=== PATIENT | female | born 1970 | race Caucasian/White ===

== ENCOUNTER → 2019-05-25 09:57 | Outpatient (BNVA) | payer BC, MEDICAID, SELFPAY | PROVIDERS: Family Provider Family Medicine; PCP Family Medicine; Visit Provider Specialist | DX: G40.909 Epilepsy, unspecified, not intractable, without status epilepticus (principal); F17.210 Nicotine dependence, cigarettes, uncomplicated | CPT/HCPCS: 99212 ==

== ENCOUNTER 2022-04-02 11:12 | Emergency (ER) | payer MEDICARE, MEDICAID, SELFPAY ==
[2022-04-02 11:24] VITALS: BP 134/86; PULSE 86; RESP 16; TEMP 36.9; O2SAT 95; BMI 37.8
--- NOTE | 2022-04-02 12:18 | ED_ITS ---
HPI - General Adult General: Chief complaint: General Medical Stated complaint: Congestion, head pain Time Seen by Provider: 04/02/22 11:24 Source: patient Mode of arrival: ambulatory History of Present Illness: 51-year-old female who presents emergency room complaining of sinus pain and congestion for the last week. She complaining of right ear pain and sinus congestion and fullness. Onset (ago): week(s) (1) Location: head Severity: mild Quality: aching Pain Consistency: constant Relieving factors: none Exacerbating factors: none Associated symptoms: Reports headache(s); Deny chest pain, confusion, cough, diaphoresis, decreased appetite, dyspnea, fevers/chills, malaise, nausea, rash, palpitations, seizures, short of breath, syncope, vomiting or weakness Review of Systems Const: Denies: fever(s), chills, fatigue, malaise or diaphoresis ENMT: Reports: ear or mastoid pain, nasal discharge and nasal congestion; Denies: throat pain or ear discharge Card: Denies: chest pain, palpitations or syncope Resp: Reports: non-productive cough; Denies: dyspnea GI: Denies: abdominal pain, nausea or vomiting : Denies: flank pain, difficulty voiding, dysuria, urinary frequency or urinary urgency Musc: Denies: neck pain or back pain Skin/Breast: Denies: rash or pruritus Neuro: Reports: headache(s); Denies: confusion PFSH ED PFSH: Medical History History of seizure Hx of traumatic brain injury Family History Other CAD (coronary artery disease) Dementia Denies family history of Hypertension Stroke Social History Smoking and tobacco status: current every day smoker cigarettes Packs smoked per day: 0.5 Alcohol intake: current Alcohol intake frequency: holidays/special occasions only History of recent travel: No Physical Exam Const: COMMON NORMALS: no acute distress GENERAL APPEARANCE: cooperative and comfortable ORIENTATION/CONSCIOUSNESS: Yes awake HENMT: COMMON NORMALS: normocephalic, atraumatic, hearing grossly normal bilaterally, external ears normal, EAC's normal, moist oral mucous membranes and oropharynx normal HEAD & SCALP: normocephalic and atraumatic NOSE: Nasal discharge present clear and mucoid EXTERNAL EAR: Yes external ears normal EXTERNAL AUDITORY CANAL: EAC's normal TYMPANIC MEMBRANE: TM abnormal TM lat erality: left Details: bulging, erythematous and fluid behind TM Eye: COMMON NORMALS: Equal, round and reactive pupils present, EOMs intact bilaterally, conjunctivae normal and no scleral icterus CONJUNCTIVA: Yes conjunctivae normal PUPIL: Yes Equal, round and reactive pupils present Neck/C-Spine: COMMON NORMALS: full ROM, no lymphadenopathy, supple and no JVD Lymph: LYMPHATIC: no lymphadenopathy noted and no lymphedema noted Resp: COMMON NORMALS: normal respiratory effort, No retractions, No use of accessory muscles and clear to auscultation bilaterally AUSCULTATION: clear to auscultation bilaterally Cardio: COMMON NORMALS: no JVD, regular rate, regular rhythm and No murmurs present (Cardio) RATE: regular rate RHYTHM: regular rhythm GI: COMMON NORMALS: Soft to palpation and No hepatosplenomegaly present AUSCULTATION: Yes normoactive bowel sounds PALPATION: Yes Soft to palpation, No Tenderness to palpation present (GI), No Guarding due to palpation present (GI) and Yes No hepatosplenomegaly present Extremity: COMMON NORMALS: normal to inspection, capillary refill normal, no clubbing, cyanosis or edema, no calf tenderness and no pedal edema Skin: COMMON NORMALS: no rashes or lesions noted GENERAL SKIN EXAM: no rashes or lesions noted Course Vital Signs: Vital signs: Vital Signs Temperature 98.5 F 04/02/22 11:24 Pulse Rate 86 04/02/22 12:46 Respiratory Rate 16 04/02/22 11:24 Blood Pressure 134/86 04/02/22 11:24 Pulse Oximetry 94 04/02/22 12:46 Oxygen Delivery Me thod 04/02/22 11:24 [facility] - General Adult Medical Decision Making Treated for left otitis media and sinusitis with Augmentin [id number] cough cold remedies Tylenol or Profen as needed. Medical Records I reviewed the patient's medical records. Lab Data I reviewed the patient's lab results. Discharge Plan Discharge Patient Disposition: Home Clinical Impression: Acute left otitis media, Sinusitis, acute Condition: Stable Prescriptions: New Augmentin 500-125 mg tablet 1 tab PO TID Qty: 30 0RF No Action cranberry 400 mg capsule 400 mg PO DAILY nitrofurantoin monohyd/m-cryst [Macrobid] 100 mg capsule 100 mg PO BID Discharge Orders: Discharge ED (Routine); Ordered 04/02/22 Ordered By: Kaden Martinez Referrals: Wolfgang Bailey MD [Primary Care Provider] - Discharge Diet: Usual diet Discharge Activity: Increase activity as tolerated Patient Instructions: Opioid Safety, Pain Management Activity Restrictions/Additional Instructions: You were seen today for an upper respiratory infection based on your exam you have a left otitis media and sinusitis. Take antibiotics 1 pill 3 times a day for 10 days. You can use [id number] cough cold decongestant remedies as needed as well as Tylenol or Profen for relief of other symptoms. Coding Level of Care Code ED Mortgage Loan Originator for Lupe Acosta
[2022-04-02 12:46] VITALS: PULSE 86; O2SAT 94
== END 2022-04-02 12:46 | disposition home or self-care (01) ==
PROVIDERS: Emergency Provider Family Medicine; PCP Family Medicine Adult Medicine
DX: H66.92 Otitis media, unspecified, left ear (principal); J01.90 Acute sinusitis, unspecified
CPT/HCPCS: 99283

== ENCOUNTER 2022-09-12 22:34 | Emergency (ER) | payer MEDICARE, MEDICAID, SELFPAY ==
[2022-09-12 22:40] VITALS: BP 106/80; PULSE 83; RESP 14; TEMP 36.7; O2SAT 97
--- NOTE | 2022-09-12 22:43 | ED_ITS ---
HPI - Extremity Problem General: Chief complaint: Extremity Problem,Nontraumatic Stated complaint: Left Hand Hurts Time Seen by Provider: 09/12/22 22:41 Source: patient Mode of arrival: ambulatory Limitations: no limitations History of Present Illness: Patient is a 51-year-old female presents to ED today with a complaint of left hand pain. She states earlier today after playing on her phone for 20 to 30 minutes she began developing pain in the left hand. She has no other complaints or injuries at this time. She denies any paresthesias or changes of sensation to the digit. She has not noticed any color or temperature changes. No swelling. Pain has improved upon arrival to the ED when compared to onset. MD Complaint: extremity pain Onset (ago): hour(s) Pain Consistency: other (improving) Location: left and upper extremity Radiation: none Relieving factors: nothing Exacerbating factors: nothing Associated symptoms: Reports no associated symptoms Review of Systems Musc: Reports: extremity pain (L hand pain); Denies: extremity swelling, joint pain, joint swelling, joint redness, joint warmth, limited range of motion or muscle weakness [facility] ED PFSH: Medical History History of seizure Hx of traumatic brain injury Family History Other CAD (coronary artery disease) Dementia Denies family history of Hypertension Stroke Social History Smoking and tobacco status: current every day smoker cigarettes Packs smoked per day: 0.5 Alcohol intake: current Alcohol intake frequency: holidays/special occasions only Substance/Drug Use: never Physical Exam Const: COMMON NORMALS: no acute distress, patient oriented x3, no limitations, alert and well nourished ORIENTATION/CONSCIOUSNESS: Yes awake, Yes oriented to person, Yes oriented to place and Yes oriented to time Extremity: COMMON NORMALS: normal to inspection, full ROM, capillary refill normal, no joint enlargement, no clubbing, cyanosis or edema, no calf tenderness and no pedal edema GENERAL: Yes normal exam except as noted LEFT UPPER EXTREMITY: Yes hand & digits (no abnormalities noted to L hand) Left hand and digits: Yes inspection (normal), Yes ROM (normal) and Yes neurovascular exam (normal) Neuro: COMMON NORMALS: patient oriented x3, moves all extremities, no focal motor deficits and no sensory deficits noted SENSORIUM/ORIENTATION: Yes alert, Yes oriented to person, Yes oriented to place and Yes oriented to time MOTOR EXAM: 5/5 motor strength present throughout Course Vital Signs: Vital signs: Vital Signs Temperature 98.0 F 09/12/22 22:40 Pulse Rate 83 09/12/22 22:40 Respiratory Rate 14 09/12/22 22:40 Blood Pressure 106/80 09/12/22 22:40 Pulse Oximetry 97 09/12/22 22:40 Oxygen Delivery Me thod Room Air 09/12/22 22:40 MDM - Extremity (Nontraumatic) Medical Decision Making I do not appreciate any abnormalities noted to the left hand at this time. She does state pain has improved since arrival to the ED. Discussed possibly limiting cell phone use, taking an anti-inflammatory when she gets home, and may be using some gentle heat to the area. She can follow-up with primary care if pain/symptoms persist. Return ED precautions given. Discharge Plan Discharge Patient Disposition: Home Clinical Impression: Left hand pain Condition: Stable Prescriptions: No Action loperamide [Anti-Diarrheal (loperamide)] 2 mg capsule 2 mg PO Q6H PRN (Reason: loose stool) Qty: 10 0RF Discharge Orders: Discharge ED (Routine); Ordered 09/12/22 Ordered By: Heidi Haq Referrals: Wolfgang Bailey MD [Physician] - Coding Level of Care Code ED Assistant Brand Manager for Lupe Acosta
--- NOTE | 2022-09-18 15:09 | DCPLANNER ---
title department manager called patient due to no primary care physician - no answer at this time.
== END 2022-09-12 22:56 | disposition home or self-care (01) ==
PROVIDERS: Emergency Provider Physician Assistant
DX: M79.642 Pain in left hand (principal); F17.210 Nicotine dependence, cigarettes, uncomplicated
CPT/HCPCS: 99283

== ENCOUNTER → 2022-10-08 11:20 | Outpatient (BNVA) | payer MEDICARE, MEDICAID, SELFPAY | PROVIDERS: PCP Family Medicine; Visit Provider Family Medicine | DX: R73.09 Other abnormal glucose (principal); G89.29 Other chronic pain; J44.9 Chronic obstructive pulmonary disease, unspecified; F17.200 Nicotine dependence, unspecified, uncomplicated; Z71.6 Tobacco abuse counseling; Z12.39 Encounter for other screening for malignant neoplasm of breast; Z68.34 Body mass index [BMI] 34.0-34.9, adult; Z12.4 Encounter for screening for malignant neoplasm of cervix; Z87.820 Personal history of traumatic brain injury; Z87.898 Personal history of other specified conditions | CPT/HCPCS: 80053; 81000; 83036; 84439; 84443; 85025 ==

== ENCOUNTER 2023-10-16 22:41 | Emergency (ER) | payer MEDICARE, MEDICAID, SELFPAY ==
--- NOTE | 2023-10-16 22:40 | ECG_ITS ---
[facility] Test Date: 2023-10-16 Pat Name: Mee Oviedo Department: Room: Gender: Female Brim Molder: : 1970 Requested By: Heidi Haq Order Number: [id number] Hetal MD: Colten Guevara M.D. Measurements Intervals [place] Rate: 106 P: 29 AK: 148 QRS: 29 QRSD: 86 T: 26 QT: 336 QTc: 447 Interpretive Statements SINUS TACHYCARDIA Compared to ECG 11/24/2018 15:54:00 Sinus rhythm no longer present Electronically Signed On 10-17-2023 18:45:43 CDT by Colten Guevara M.D. [id number] f
--- NOTE | 2023-10-16 22:43 | XRR_ITS ---
PROCEDURE INFORMATION: Exam: XR Chest Exam date and time: 10/16/2023 10:53 PM Age: 52 years old Clinical indication: Chest wall pain; Additional info: Chest pain TECHNIQUE: Imaging protocol: Radiologic exam of the chest. Views: 1 view. COMPARISON: CR XR chest 1V [id number] 11/24/2018 3:41 PM FINDINGS: Lungs: Clear, symmetrically inflated lungs. Pleural spaces: No pleural effusion. No pneumothorax. Heart/Mediastinum: Borderline cardiac enlargement is new from prior. Bones/joints: Age appropriate. XR/XR chest 1V portable [id number] IMPRESSION: New borderline cardiac enlargement. No other findings to suggest heart failure.
[2023-10-16 22:45] VITALS: BP 125/87; PULSE 106; RESP 18; TEMP 36.6; O2SAT 94; BMI 41.1
[2023-10-16 22:50] VITALS: BP 125/80; PULSE 98; RESP 15; O2SAT 91
--- NOTE | 2023-10-16 23:08 | ED_ITS ---
HPI - Chest Pain 2 General: Chief Complaint: Chest Pain Stated Complaint: CP Time Seen by Provider: 10/16/23 22:45 History of Present Illness: Patient presents to the ER with complaints of chest pain for the last couple hours. Patient rates it 8 out of 10. Patient denies any cardiac history or nausea vomiting diaphoresis shortness of breath. Patient says she cannot take aspirin or NSAIDs due to irritation of her stomach. Patient has had these episodes before. The pain does not radiate. Nothing brings it on or makes it worse or makes it go away. Review of Systems 2 General: Reports: 10 or more systems reviewed and unremarkable except in HPI and below PFSH ED 2 PFSH: Medical History COPD (chronic obstructive pulmonary disease) Hx of traumatic brain injury History of seizure Surgical History History of foot surgery Family History Mother Cancer colon Other CAD (coronary artery disease) Dementia Diabetes Denies family history of Clotting disorder Hyperlipidemia Psychiatric illness Chronic kidney disease (CKD) Anesthesia complication Bleeding disorder Lung disease Hypertension Stroke Social History Smoking and tobacco/nicotine status: current every day tobacco/nicotine user cigarettes Packs smoked per day: 0.5 Alcohol intake: never Substance/Drug Use: never Lives independently: Yes Marital status: Single Number of children: 2 Current occupational status: disabled Jocelyn/Temple: Jewish Special jocelyn needs: No Agree to transfusion: Yes Physical Exam 2 Const: COMMON NORMALS: no acute distress, average body habitus, patient oriented x3, no limitations, healthy appearing, alert and well nourished HENMT: COMMON NORMALS: normocephalic, atraumatic, hearing grossly normal bilaterally, external ears normal, Normal external nose present and moist oral mucous membranes HEAD & SCALP: normocephalic and atraumatic NOSE: Normal external nose present EXTERNAL EAR: Yes external ears normal Neck/C-Spine: COMMON NORMALS: no JVD Chest: COMMONS NORMALS: normal inspection of the chest and normal palpation of entire chest wall Resp: COMMON NORMALS: normal respiratory effort, No retractions, No use of accessory muscles and clear to auscultation bilaterally AUSCULTATION: clear to auscultation bilaterally Cardio: COMMON NORMALS: no JVD, regular rate, regular rhythm, S1 normal heart sound present, S2 normal heart sound present, No gallops present (Cardio), No clicks present (Cardio), No murmurs present (Cardio) and No rub (Cardio) R ATE: regular rate RHYTHM: regular rhythm HEART SOUNDS: S1 normal heart sound present and S2 normal heart sound present GI: COMMON NORMALS: Normal to inspection, nondistended, normoactive bowel sounds present, Soft to palpation, non-tender, No hepatosplenomegaly present and no masses PALPATION: Yes Soft to palpation and Yes No hepatosplenomegaly present Neuro: COMMON NORMALS: patient oriented x3 SENSORIUM/ORIENTATION: Yes alert Course 2 Vital Signs: Vital signs: Vital Signs Temperature 98 F 10/16/23 22:45 Pulse Rate 86 10/17/23 00:00 Respiratory Rate 16 10/17/23 00:00 Blood Pressure 123/85 10/17/23 00:00 Pulse Oximetry 91 10/17/23 00:00 Oxygen Delivery Me thod Room Air 10/17/23 00:00 MDM - Chest Pain Medical Decision Making While waiting for patient's lab work to come back patient says she wanted to go leaving go play the slots at the gas station so patient left AMA. Differential Diagnosis Unlikely acute massive pulmonary embolism, acute respiratory failure, acute myocardial infarction, cardiac arrest or sudden cardiac Medical Records I reviewed the patient's medical records. Lab Data I reviewed the patient's lab results. 10/16/23 22:53 10/16/23 22:53 Radiology Impressions Chest X-Ray 10/16/23 22:43 IMPRESSION: New borderline cardiac enlargement. No other findings to suggest heart failure. Laboratory Results WBC 8.91 10^3/uL (3.29-11.43) 10/16/23 22:53 RBC 4.67 10^6/uL (3.85-5.65) 10/16/23 22:53 Hgb 13.30 g/dL (11.27-16.99) 10/16/23 22:53 Hct 41.1 % (36-47) 10/16/23 22:53 MCV 88.0 fl (85-98) 10/16/23 22:53 MCH 28.5 pg (27-33) 10/16/23 22:53 MCHC 32.4 g/dL (30-55) 10/16/23 22:53 RDW 15.0 % (12.1-15.1) 10/16/23 22:53 Plt Count 309 10^3/cmm (157-399) 10/16/23 22:53 MPV 9.9 fL (7.4-10.4) 10/16/23 22:53 Neut % (Auto) 63.3 % 10/16/23 22:53 Lymph % (Auto) 27.5 % 10/16/23 22:53 [place] % (Auto) 5.7 % 10/16/23 22:53 Eos % (Auto) 2.7 % 10/16/23 22:53 Baso % (Auto) 0.4 % 10/16/23 22:53 Neut # (Auto) 5.63 10^3/uL (1.8-7.7) 10/16/23 22:53 Lymph # (Auto) 2.5 10^3/uL (0.8-4.8) 10/16/23 22:53 [place] # (Auto) 0.5 10^3/uL (0.2-0.9) 10/16/23 22:53 Eos # (Auto) 0.2 10^3/uL (0.0-0.8) 10/16/23 22:53 Baso # (Auto) 0.0 10^3/uL (0.0-0.1) 10/16/23 22:53 Nucleated RBC % (auto) 0 % 10/16/23 22:53 Nucleated RBCs # 0.0 /100WBC 10/16/23 22:53 Sodium 141 mmol/L (136-145) 10/16/23 22:53 Potassium 3.7 mmol/L (3.5-5.1) 10/16/23 22:53 Chloride 104 mmol/L (98-107) 10/16/23 22:53 Carbon Dioxide 23 mmol/L (22-29) 10/16/23 22:53 Anion Gap 17.7 (5-19) 10/16/23 22:53 BUN 17 mg/dL (6-20) 10/16/23 22:53 Creatinine 0.9 mg/dL (0.5-0.9) 10/16/23 22:53 GFR Calculation 65.8 mL/min (90-130) L 10/16/23 22:53 Glucose 177 mg/dL (65-115) H 10/16/23 22:53 Calculated Osmolality 298 mOsm/kg (285-295) H 10/16/23 22:53 Calcium 9.4 mg/dL (8.5-10.5) 10/16/23 22:53 Total Bilirubin 0.3 mg/dL (0.15-1.2) 10/16/23 22:53 AST 12 U/L (0-32) 10/16/23 22:53 ALT 18 U/L (0-33) 10/16/23 22:53 Alkaline Phosphatase 109 U/L (35-105) H 10/16/23 22:53 Troponin T Baseline < 6 ng/L (0-10) 10/16/23 22:53 Total Protein 6.6 g/dL (6.6-8.7) 10/16/23 22:53 Albumin 4.1 g/dL (3.5-5.2) 10/16/23 22:53 Globulin 2.5 g/dL (1.3-4.6) 10/16/23 22:53 All radiology interpretation(s) finalized by discharge Discharge Plan Discharge Patient Disposition: Left Against Medical Advice Condition: Stable Prescriptions: No Action budesonide-formoterol [Symbicort] 80-4.5 mcg/actuation HFA aerosol inhaler 2 puff inhalation BID Qty: 10.2 1RF metformin 500 mg tablet extended release 24 hr 500 mg PO BID Qty: 60 1RF meloxicam 15 mg tablet See Rx Instructions .ROUTE .COMPLEX Qty: 14 0RF Dose Instruction: TAKE 1 TABLET BY MOUTH EVERY DAY Rx Instructions: TAKE 1 TABLET BY MOUTH EVERY DAY Coding Level of Care Code ED [employer] Mill Lab Technician for Lupe Acosta
[2023-10-16 23:11] LABS: Basophils % 0.4 %; Eosinophils # 0.2 10^3/uL (0.0-0.8); Eosinophils % 2.7 %; Hematocrit 41.1 % (36-47); Lymphocytes # 2.5 10^3/uL (0.8-4.8); Lymphocytes % 27.5 %; Mean Corpuscular HGB Conc 32.4 g/dL (30-55); Mean Corpuscular Hemoglobin 28.5 pg (27-33); Mean Platelet Volume 9.9 fL (7.4-10.4); Monocytes # 0.5 10^3/uL (0.2-0.9); Monocytes % 5.7 %; Neutrophils # 5.63 10^3/uL (1.8-7.7); Neutrophils % 63.3 %; Nucleated Red Blood Cells % 0 %; Platelet Count 309 10^3/cmm (157-399); Red Blood Count 4.67 10^6/uL (3.85-5.65); White Blood Count 8.91 10^3/uL (3.29-11.43)
[2023-10-16] MEDS: ketorolac 30 mg/mL INJ IVP (23:14)
[2023-10-16 23:28] LABS: Troponin(5th) Baseline < 6 ng/L (0-10)
[2023-10-16 23:30] LABS: Alanine Aminotransferase 18 U/L (0-33); Albumin Level 4.1 g/dL (3.5-5.2); Alkaline Phosphatase 109 U/L (35-105); Anion Gap 17.7 (5-19); Aspartate Amino Transferase 12 U/L (0-32); Blood Urea Nitrogen 17 mg/dL (6-20); Calcium 9.4 mg/dL (8.5-10.5); Carbon Dioxide 23 mmol/L (22-29); Chloride 104 mmol/L (98-107); Creatinine Clr Calc Pharmacy 88.1495; Globulin 2.5 g/dL (1.3-4.6); Glomerular Filtration Rate 65.8 mL/min (90-130); Glucose 177 mg/dL (65-115); Osmolality Calculated 298 mOsm/kg (285-295); Potassium 3.7 mmol/L (3.5-5.1); Sodium 141 mmol/L (136-145); Total Bilirubin 0.3 mg/dL (0.15-1.2); Total Protein 6.6 g/dL (6.6-8.7)
[2023-10-16 23:37] VITALS: BP 128/84; PULSE 92; RESP 18; O2SAT 90
[2023-10-17] VITALS: BP 123/85; PULSE 86; RESP 16; O2SAT 91
[2023-10-17 00:56] VITALS: BP 123/85; PULSE 86; RESP 16; TEMP 36.6; O2SAT 91
== END 2023-10-17 00:57 | disposition left against medical advice (07) ==
PROVIDERS: Physician Assistant; Emergency Provider Emergency Medicine; PCP Family Medicine
DX: R07.9 Chest pain, unspecified (principal); J44.9 Chronic obstructive pulmonary disease, unspecified; Z79.899 Other long term (current) drug therapy; F17.210 Nicotine dependence, cigarettes, uncomplicated; Z53.21 Procedure and treatment not carried out due to patient leaving prior to being seen by health care provider; Z82.49 Family history of ischemic heart disease and other diseases of the circulatory system
CPT/HCPCS: 71045; 80053; 84484; 85025; 93005; 96374; 99285; J1885

== ENCOUNTER 2024-12-31 19:58 | Emergency (ER) | payer MEDICARE, MEDICAID, SELFPAY ==
[2024-12-31 20:05] VITALS: BP 116/84; PULSE 95; RESP 17; TEMP 36.6; O2SAT 96
--- NOTE | 2024-12-31 20:49 | XRR_ITS ---
PROCEDURE INFORMATION: Exam: XR Right Hand Exam date and time: 12/31/2024 10:14 PM Age: 54 years old Clinical indication: Swelling; Hand; Right; Additional info: Pain/ trauma TECHNIQUE: Imaging protocol: Radiologic exam of the right hand. Views: 3 or more views. COMPARISON: No relevant prior studies available. FINDINGS: Bones/joints: There is no fracture or dislocation. The joint spaces appear preserved. There are no advanced degenerative changes or findings to suggest bony erosions. Soft tissues: Normal. XR/XR hand RT min 3V* [id number] IMPRESSION: No acute findings.
[2024-12-31 22:02] VITALS: BP 114/77; PULSE 78; RESP 18; O2SAT 95
--- NOTE | 2024-12-31 22:46 | W.ED.EXTPRO ---
HPI - Extremity Problem General: Chief complaint: Extremity Injury, Upper Stated complaint: Rt. hand swelling Time Seen by Provider: 12/31/24 22:07 History of Present Illness: 54-year-old patient that presents to the emergency room with right dorsum of her hand swelling. These are closest to digits 2 3 and 4. She is unsure if she hit this when she had to go to the bathroom really bad. She said she jumped up really quick, however did not remember hitting it. No previous history of IV drug use. Patient stated she noted the swelling this morning. She could have hit it when she needed to go to the bathroom really bad last night. Associated symptoms: Deny chest pain, fever(s) or rash Related Data Previous Rx's ?Medication ?Instructions ?Recorded budesonide-formoterol HFA 80 2 puff inhalation BID #10.2 grams 10/08/22 mcg-4.5 mcg/actuation aerosol inhaler (Symbicort) metformin 500 mg tablet,extended 500 mg PO BID #60 tabs 11/06/22 release 24 hr meloxicam 15 mg tablet See Rx Instructions .Route 02/10/23 .COMPLEX #14 tabs Allergies Allergy/AdvReac Type Severity Reaction Status Date / Time No Known Allergies Allergy Verified 12/31/24 20:08 Review of Systems General: Reports: 10 or more systems reviewed and unremarkable except in HPI and below Const: Denies: fever(s) or chills Eyes: Denies: change in vision or blurry vision ENMT: Denies: throat pain or mouth pain Card: Denies: chest pain or palpitations Resp: Denies: dyspnea or productive cough GI: Denies: abdominal pain, nausea or vomiting : Denies: flank pain or difficulty voiding Musc: Reports: extremity pain, joint pain and joint swelling; Denies: neck pain, back pain, extremity swelling, joint redness or joint warmth Skin/Breast: Denies: rash or pruritus Neuro: Denies: headache(s) or numbness in extremities Psych: Denies: anxiety or depression PFS ED PFSH: Medical History (Updated 12/31/24 @ 23:44 by JEIMY Wood) COPD (chronic obstructive pulmonary disease) Hx of traumatic brain injury History of seizure Surgical History History of foot surgery Family History Mother Cancer colon Other CAD (coronary artery disease) Dementia Diabetes Denies family history of Clotting disorder Hyperlipidemia Psychiatric illness Chronic kidney disease (CKD) Anesthesia complication Bleeding disorder Lung disease Hypertension Stroke Social History Smoking and tobacco/nicotine status: current every day tobacco/nicotine user cigarettes Packs smoked per day: 0.5 Alcohol intake: never Substance/Drug Use: never Lives independently: Yes Marital status: Single Number of children: 2 Current occupational status: disabled Jocelyn/Mormon: [employer] Special jocelyn needs: No Agree to transfusion: Yes Physical Exam Const: COMMON NORMALS: no acute distress, average body habitus, patient oriented x3, no limitations, healthy appearing, alert and well nourished GENERAL APPEARANCE: cooperative, comfortable and well kempt HENMT: COMMON NORMALS: normocephalic and atraumatic HEAD & SCALP: normocephalic and atraumatic Eye: COMMON NORMALS: Equal, round and reactive pupils present, EOMs intact bilaterally and conjunctivae normal CONJUNCTIVA: Yes conjunctivae normal PUPIL: Yes Equal, round and reactive pupils present Neck/C-Spine: COMMON NORMALS: full ROM, no lymphadenopathy and no meningeal signs Lymph: LYMPHATIC: no lymphadenopathy noted Chest: COMMONS NORMALS: normal inspection of the chest and normal palpation of entire chest wall Resp: COMMON NORMALS: normal respiratory effort, No retractions and clear to auscultation bilaterally AUSCULTATION: clear to auscultation bilaterally Cardio: COMMON NORMALS: regular rate and regular rhythm RATE: regular rate RHYTHM: regular rhythm GI: COMMON NORMALS: Normal to inspection, nondistended, normoactive bowel sounds present, Soft to palpation, non-tender and No hepatosplenomegaly present PALPATION: Yes Soft to palpation and Yes No hepatosplenomegaly present : COMMON NORMALS: Yes no CVA tenderness BLADDER/KIDNEY EXAM: Yes no CVA tenderness Back/Pelvis: COMMON NORMALS: no CVA tenderness Extremity: COMMON NORMALS: normal to inspection, full ROM and capillary refill normal Neuro: COMMON NORMALS: patient oriented x3 SENSORIUM/ORIENTATION: Yes alert MENINGEAL SIGNS: Yes no meningeal signs Psych: APPEARANCE: Yes well kempt Skin: COMMON NORMALS: no rashes or lesions noted, no wounds and turgor normal GENERAL SKIN EXAM: no rashes or lesions noted and turgor normal Course Vital Signs: Vital signs: Vital Signs Temperature 97.9 F 12/31/24 20:05 Pulse Rate 79 12/31/24 23:49 Respiratory Rate 16 12/31/24 23:49 Blood Pressure 109/85 12/31/24 23:49 Pulse Oximetry 98 12/31/24 23:49 Oxygen Delivery Me thod Room Air 12/31/24 22:02 MDM - Extremity (Nontraumatic) Medical Decision Making Patient is 54-year-old female with contusion to her right dorsum of her hand. There is no fracture at this time. She will add ice, Tylenol, ibuprofen. She will follow-up with primary care Lab Data Radiology Impressions Hand X-Ray 12/31/24 20:49 IMPRESSION: No acute findings. All radiology interpretation(s) finalized by discharge Discharge Plan Discharge Patient Disposition: Home Clinical Impression: Contusion of dorsum of right hand Condition: Stable Prescriptions: No Action budesonide-formoterol [Symbicort] 80-4.5 mcg/actuation HFA aerosol inhaler 2 puff inhalation BID Qty: 10.2 1RF metformin 500 mg tablet extended release 24 hr 500 mg PO BID Qty: 60 1RF meloxicam 15 mg tablet See Rx Instructions .ROUTE .COMPLEX Qty: 14 0RF Dose Instruction: TAKE 1 TABLET BY MOUTH EVERY DAY Rx Instructions: TAKE 1 TABLET BY MOUTH EVERY DAY Discharge Orders: Discharge ED (Routine); Ordered 12/31/24 Ordered By: Sarita Carrillo Referrals: Alex Eric MD [Primary Care Provider, Family Practice] Discharge Diet: Usual diet Discharge Activity: Resume usual activity Patient Instructions: Hand Sprain (ED), Patient Portal & Samantha Instructions Activity Restrictions/Additional Instructions: - No fracture was noted. -I would ice and elevate this area that will help with the contusion -Tylenol and ibuprofen for pain -Return to your doctor in 1 week regarding this visit. If there are additional concerns, an x-ray can be reobtained at that time. Sometimes x-rays do not show small fractures until there is calcification/healing. - Return to ED with increasing pain, redness, fever greater than 100.4 ?F Print Language: [place] Islander Coding Level of Care Code ED Media Director for Lupe Acosta
[2024-12-31 23:49] VITALS: BP 109/85; PULSE 79; RESP 16; O2SAT 98
== END 2024-12-31 23:51 | disposition home or self-care (01) ==
PROVIDERS: Emergency Provider Physician Assistant; PCP Family Medicine
DX: S60.221A Contusion of right hand, initial encounter (principal); Z79.84 Long term (current) use of oral hypoglycemic drugs; F17.210 Nicotine dependence, cigarettes, uncomplicated; J44.9 Chronic obstructive pulmonary disease, unspecified; X58.XXXA Exposure to other specified factors, initial encounter
CPT/HCPCS: 73130; 99283